=== PATIENT | male | born 1960 ===

== ENCOUNTER 2024-10-22 06:30 | Outpatient (RCR) | payer OTHER, SELFPAY | END 2024-11-21 23:59 | disposition home or self-care (01) | LOC: GPT 06:30 | PROVIDERS: Visit Provider Nurse Practitioner Family | DX: M25.511 Pain in right shoulder (principal) | CPT/HCPCS: 97110; 97112; 97140; 97161 ==

== ENCOUNTER 2024-11-22 05:00 | Outpatient (RCR) | payer OTHER, SELFPAY | END 2024-12-21 23:59 | disposition home or self-care (01) | LOC: GPT 05:00 | PROVIDERS: Visit Provider Nurse Practitioner Family | DX: M25.511 Pain in right shoulder (principal) | CPT/HCPCS: 97110; 97112; 97140 ==

== ENCOUNTER 2024-12-22 06:30 | Outpatient (RCR) | payer OTHER, SELFPAY | END 2025-01-04 10:08 | disposition home or self-care (01) | LOC: GPT 06:30 | PROVIDERS: Visit Provider Nurse Practitioner Family | DX: M25.511 Pain in right shoulder (principal) | CPT/HCPCS: 97110; 97140; 97164 ==